=== PATIENT | female | born 1995 | race Caucasian/White ===

== ENCOUNTER → 2018-10-25 | Outpatient (REF) | payer OTHER | LOC: M SFHCLERA 11:09 | PROVIDERS: ATTEND Physician Assistant Medical | DX: B37.3 Candidiasis of vulva and vagina (principal) | CPT/HCPCS: 81002; 81025; 87086; G0463 ==

== ENCOUNTER 2019-04-13 19:45 | Emergency (ER) | payer OTHER ==
[~2019-04-13] VITALS: Ht 147.3 cm; Wt 43.2 kg
[2019-04-13] MEDS ORDERED: NS 500 ML IV ONE (20:30)
[2019-04-13] MEDS ORDERED: KETOROLAC 30 MG/ML VIAL (J1885) IV ONE (20:30)
--- NOTE | 2019-04-13 21:26 | ECGEPIP ---
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
[2019-04-13 21:43] VITALS: BP 120/71
--- NOTE | 2019-04-13 23:02 | REP ---
Clinical: Chest pain . Comparison: None . Findings: The mediastinum and cardiac silhouette are stable and within normal limits for portable technique. The lung olivera are clear without acute consolidation, effusion, or pneumothorax. Skeletal structures are intact. Impression: No acute cardiopulmonary process appreciated. Electronically Signed by Ramiro Otto MD 04/13/2019 10:54 P
== END 2019-04-13 23:03 | disposition home or self-care (01) ==
LOC: M ED 19:45
DX: F41.9 Anxiety disorder, unspecified (principal); R07.81 Pleurodynia
CPT/HCPCS: 36600; 71045; 82803; 93005; 96361; 96374; 99284; J1885

== ENCOUNTER 2019-05-25 10:18 | Emergency (ER) | payer OTHER ==
[~2019-05-25] VITALS: Ht 147.3 cm; Wt 43.1 kg
[2019-05-25 10:18] VITALS: BP 113/70
[2019-05-25] MEDS ORDERED: ZOLO100T PO (10:28)
[2019-05-25] MEDS ORDERED: ACETAMINOPHEN 325 MG TAB PO ONE (11:15)
--- NOTE | 2019-05-25 11:20 | REP ---
Clinical: Trauma . Technique: AP, lateral, bilateral oblique, and coned-down views. Findings: Alignment and lordosis is maintained. The vertebral bodies including transverse process and spinous processes are intact and normal. There is no evidence for acute fracture / compression injury or subluxation. No evidence for spondylolysis or spondylolisthesis. No significant degenerative change is noted. Impression: Normal lumbosacral spine radiograph series. Electronically Signed by Ramiro Otto MD 05/25/2019 11:12 A
--- NOTE | 2019-05-25 11:22 | REP ---
Clinical: Trauma with hip pain. Technique: Frontal view of the pelvis with neutral and frog lateral views of the bilateral hips. Findings: Osseous structures and joint spaces are intact and normal. Hip joints appear symmetric and age appropriate. No acute fracture or dislocation. No evidence for healed injury. No significant degenerative or congenital abnormalities are appreciated. Surrounding soft tissues are unremarkable. Impression: Normal pelvis and bilateral hip series. Electronically Signed by Ramiro Otto MD 05/25/2019 11:13 A
== END 2019-05-25 11:41 | disposition home or self-care (01) ==
LOC: M ED 10:18
DX: S30.0XXA Contusion of lower back and pelvis, initial encounter (principal); V00.832A Motorized mobility scooter colliding with stationary object, initial encounter; Y92.019 Unspecified place in single-family (private) house as the place of occurrence of the external cause; Z79.899 Other long term (current) drug therapy

== ENCOUNTER 2020-06-18 13:29 | Emergency (ER) | payer OTHER ==
[~2020-06-18] VITALS: Ht 149.9 cm; Wt 50.4 kg
[~2020-06-18 13:29] MED LIST: ZOLO100T PO
[2020-06-18] MEDS ORDERED: ALBUTEROL 90 MCG/ACT 8GM HFA INHALER INH ONE (14:25)
[2020-06-18 14:40] LABS: BASO % 0.4 % (0.0-1.0); EOS # 0.1 10^3/uL (0.0-0.5); EOS % 2.1 % (0.0-3.0); HEMATOCRIT 38.9 % (36.0-47.0); HEMOGLOBIN 12.4 g/dl (12.0-15.5); LYMPH # 1.6 10^3/uL (1.5-5.0); LYMPH % 34.4 % (24.0-44.0); MEAN CORPUSCULAR HEMOGLOBIN 26.7 pg (27.0-33.0); MEAN CORPUSCULAR HGB CONC 31.9 g/dl (32.0-36.5); MEAN CORPUSCULAR VOLUME 83.8 fl (80.0-96.0); MONO # 0.3 10^3/uL (0.0-0.8); MONO % 6.4 % (2.0-8.0); NEUTROPHILS # 2.7 10^3/uL (1.5-8.5); NEUTROPHILS % 56.3 % (36.0-66.0); PLATELET COUNT, AUTOMATED 258 10^3/uL (150-450); RED BLOOD COUNT 4.64 10^6/uL (4.00-5.40); WHITE BLOOD COUNT 4.7 10^3/uL (4.0-10.0)
--- NOTE | 2020-06-18 15:05 | REP ---
INDICATION: central. left chest pain COMPARISON: 04/13/2019 TECHNIQUE: PA and lateral. FINDINGS: The mediastinum and cardiac silhouette are normal. The lung olivera are clear and without acute consolidation, effusion, or pneumothorax. The skeletal structures are intact and normal. IMPRESSION: No acute cardiopulmonary process. <Electronically signed by Ramiro Otto > 06/18/20 [id number]
[2020-06-18 15:07] LABS: ALT/SGPT 22 U/L (12-78); BILIRUBIN,DIRECT < 0.1 MG/DL (0.0-0.2); BILIRUBIN,TOTAL 0.2 MG/DL (0.2-1.0); LIPASE 110 U/L (73-393); TOTAL PROTEIN 7.3 GM/DL (6.4-8.2)
[2020-06-18] MEDS ORDERED: NAPR-885 PO (16:01)
[2020-06-18 16:24] VITALS: BP 120/77
--- NOTE | 2020-06-18 18:51 | ECGEPIP ---
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
== END 2020-06-18 16:45 | disposition home or self-care (01) ==
LOC: M ED 13:29
DX: R07.89 Other chest pain (principal); R00.2 Palpitations; R53.83 Other fatigue; F41.9 Anxiety disorder, unspecified; Z79.899 Other long term (current) drug therapy